=== PATIENT | male | born 1975 | race Caucasian/White ===

== ENCOUNTER 2017-03-26 19:30 | Emergency (ER) | payer SELFPAY ==
[2017-03-26 19:42] VITALS: PULSE 92; RESP 18; TEMP 99.3
[2017-03-26] MEDS ORDERED: Alum-Mag Hydrox-Simethicone Susp (30 mL) PO STA (20:12)
--- NOTE | 2017-03-26 20:14 | C.PDOC ---
History Of Present Illness 42 year old male presents to the ED for evaluation of vomit and diarrhea that started yesterday. Patient reports he ate pizza, 1 carrot and garlic bread. Patient reports today he felt nauseous which prevented him from eating today. Patient denies fever, chills, dysuria, hematuria, back pain, rash, recent travel , sick contacts. Time Seen by Provider: 03/26/17 19:58 Chief Complaint (Nursing): GI Problem History Per: Patient History/Exam Limitations: no limitations Onset/Duration Of Symptoms: Days Current Symptoms Are (Timing): Still Present Context: Food Location Of Pain/Discomfort: Diffuse Radiation Of Pain To:: None Quality Of Discomfort: "Pain" Associated Symptoms: Nausea, Vomiting, Diarrhea Alleviating Factors: None Recent travel outside of the [place]: No Additional History Per: Patient Past Medical History Reviewed: Historical Data, Nursing Documentation, Vital Signs Vital Signs: Last Vital Signs Temp 99.3 F 03/26/17 19:39 Pulse 92 H 03/26/17 19:39 Resp 18 03/26/17 19:39 BP 143/83 03/26/17 20:25 Pulse Ox 98 03/26/17 20:25 - Medical History PMH: No Chronic Diseases Denies: HIV, HTN, Chronic Kidney Disease, Seizures, Sexually Transmitted Disease Surgical History: No Surg Hx Family History: States: Unknown Family Hx - Social History Hx Tobacco Use: No Hx Alcohol Use: Yes (''WHISKEY'' daily) Hx Substance Use: No - Immunization History Hx Tetanus Toxoid Vaccination: No Hx Influenza Vaccination: No Hx Pneumococcal Vaccination: No Review Of Systems Constitutional: Negative for: Fever, Chills Cardiovascular: Negative for: Chest Pain, Palpitations Respiratory: Negative for: Cough Gastrointestinal: Positive for: Nausea, Vomiting, Diarrhea Genitourinary: Negative for: Dysuria, Hematuria Musculoskeletal: Negative for: Back Pain Skin: Negative for: Rash Neurological: Negative for: Weakness, Numbness Physical Exam - Physical Exam Appears: Non-toxic, No Acute Distress Skin: Normal Color, Warm, Dry Head: Atraumatic, Normacephalic Nose: No Discharge, No Deformity Oral Mucosa: Dry Neck: Normal ROM, Supple Chest: Symmetrical Cardiovascular: Rhythm Regular, No Murmur Respiratory: Normal Breath Sounds, No Rales, No Rhonchi, No Wheezing Gastrointestinal/Abdominal: Soft, No Tenderness, No Guarding, No Rebound Extremity: Normal ROM, No Pedal Edema, No Calf Tenderness, No Deformity, No Swelling Neurological/Psych: Oriented x3 ED Course And Treatment O2 Sat by Pulse Oximetry: 97 (On RA) Pulse Ox Interpretation: Normal Medical Decision Making Medical Decision Making: Plan: * Maalox 30 ml PO * Pepcid 20 mg PO * Zofran 4 mg PO n/v/d x 2 days, benign belly, vegitarian OK with PO regimen and defer w/u with informed consent. Disposition Doctor Will See Patient In The: Office Counseled Patient/Family Regarding: Studies Performed, Diagnosis - Disposition Referrals: Julio Babb MD [Staff Provider] - Disposition: HOME/ ROUTINE Disposition Time: 20:14 Condition: GOOD Additional Instructions: drink plenty of fluids, tea, gatorade BRAT diet: Bananas, white rice, apples, toast/bread for 2-3 days pepcid 20 mg @ night to lower stomach acid and irritation Maalox 30 cc (one tablespoon) to ease abdominal discomfort and slow diarrhea Zofran 4 mg ODT one tab ever 6 hours as needed for nausea/vomiting (dissolves under the tongue) Follow-up with Dr. Babb in 2 days as needed. Prescriptions: Aluminum Hydroxide/Magnesium [Maalox Plus 30 ml] 30 ml PO 5XD PRN #240 ml PRN Reason: Diarrhea Famotidine [Pepcid] 20 mg PO HS #5 tab Ondansetron ODT [Zofran ODT] 4 mg PO Q6H PRN #6 odt PRN Reason: Nausea/Vomiting Instructions: Gastroenteritis (ED) Forms: [employer] (Yoruba) - Clinical Impression Clinical Impression: Gastroenteritis - Scribe Statement The provider has reviewed the documentation as recorded by the Scribe Alexis Lama All medical record entries made by the Scribe were at my direction and personally dictated by me. I have reviewed the chart and agree that the record accurately reflects my personal performance of the history, physical exam, medical decision making, and the department course for this patient. I have also personally directed, reviewed, and agree with the discharge instructions and disposition.
[2017-03-26] MEDS ORDERED: Aluminum Hydroxide/Magnesium Hydroxide Susp (30 mL) ONE (20:18)
[2017-03-26 20:26] VITALS: BP 143/83
[2017-03-26 21:00] VITALS: O2SAT 97
== END 2017-03-26 20:25 | disposition home or self-care (01) ==
LOC: C.ER 19:30
DX: K52.9 Noninfective gastroenteritis and colitis, unspecified (principal)

== ENCOUNTER 2018-02-11 20:10 | Emergency (ER) | payer SELFPAY ==
--- NOTE | 2018-02-11 20:43 | C.PDOC ---
History Of Present Illness 42 year old male w/ hx of gastritis presents to the emergency department with complaints of right hip pain radiating below his R knee as well as five episodes of vomiting, and umbilical pain since earlier today. Patient states that he has not taken any medications for the pain. Pain is a sharp stabbing, to his R leg, worse when he moves it. No swelling or change in sensation below the knee or in the R leg. No fall or trauma. Pt notes that he woke up with the pain previously. No enuresis, encoparesis or loss of sensation in his legs. No back pain. He denies any fevers, chills or night sweats. No N/V. No constipation or diarrhea. No urinary d/c or complaints. No dark or bloody stool. No headache. No other complaints. Time Seen by Provider: 02/11/18 20:43 Chief Complaint (Nursing): Abdominal Pain History Per: Patient History/Exam Limitations: no limitations Onset/Duration Of Symptoms: Hrs Current Symptoms Are (Timing): Still Present Location Of Pain/Discomfort: Other (umbilical) Quality Of Discomfort: Sharp, "Pain" Past Medical History Reviewed: Historical Data, Nursing Documentation, Vital Signs Vital Signs: Last Vital Signs Temp 99 F 02/11/18 20:36 Pulse 101 H 02/11/18 20:36 Resp 20 02/11/18 20:36 BP 127/85 02/11/18 20:36 Pulse Ox 98 02/11/18 20:36 - Medical History PMH: Gastritis Denies: HIV, HTN, Chronic Kidney Disease, Seizures, Sexually Transmitted Disease Surgical History: No Surg Hx Family History: States: No Known Family Hx - Social History Hx Tobacco Use: No Hx Alcohol Use: Yes (''WHISKEY'' daily) Hx Substance Use: No - Immunization History Hx Tetanus Toxoid Vaccination: No Hx Influenza Vaccination: No Hx Pneumococcal Vaccination: No Review Of Systems Except As Marked, All Systems Reviewed And Found Negative. Constitutional: Negative for: Fever, Chills Eyes: Negative for: Pain ENT: Negative for: Ear Pain, Nose Pain, Mouth Pain, Throat Pain Cardiovascular: Negative for: Chest Pain, Palpitations, Edema Respiratory: Negative for: Cough, Shortness of Breath, Hemoptysis, SOB with Excertion, Pleuritic Pain, Sputum Gastrointestinal: Positive for: Abdominal Pain. Negative for: Nausea, Vomiting, Constipation, Melena, Hematochezia, Hematemesis Genitourinary: Negative for: Dysuria, Frequency Musculoskeletal: Positive for: Leg Pain (right hip). Negative for: Neck Pain, Arm Pain Skin: Negative for: Rash, Lesions Neurological: Negative for: Weakness, Numbness Physical Exam - Physical Exam Appears: Non-toxic, In Acute Distress Skin: Warm, Dry Head: Atraumatic, Normacephalic Eye(s): bilateral: Normal Inspection, PERRL, EOMI Neck: Normal, Supple Chest: Symmetrical, No Tenderness Cardiovascular: Rhythm Regular, No Murmur Respiratory: No Rales, No Rhonchi, No Wheezing Gastrointestinal/Abdominal: Soft, Tenderness (umbilical tenderness), No Guarding, No Rebound Back: Normal Inspection, No CVA Tenderness Extremity: Tenderness (right hip tenderness, +SLR. N/V intact distally. Full ROM. No overlying erythema or crepitus. ) Extremity: Bilateral: Atraumatic, No Pedal Edema, Normal Color And Temperature, Normal ROM Pulses: Left Dorsalis Pedis: Normal, Right Dorsalis Pedis: Normal Neurological/Psych: Oriented x3, Normal Speech, Normal Cognition Gait: Steady Extremity: Right: No Drift, Left: No Drift, Upper: No Drift, Lower: No Drift ED Course And Treatment - Laboratory Results Result Diagrams: 02/11/18 21:33 02/11/18 21:33 O2 Sat by Pulse Oximetry: 98 (RA) Pulse Ox Interpretation: Normal Medical Decision Making Medical Decision Makin yr old male w/ hsx of gastritis p/w abdominal pain and R hip pain. R hip pain radiates past R knee +SLR. No indication of cauda equina or septic joint. No fall or trauma. Umbilical abd pain, mild without RLQ pain or rebounding. No complaints. Likely R sciatica. Pending imaging and labs Plan: CT Abdomen and Pelvis CMP Creatine Phosphokinase CBC Toradol 15mg PO XR Right Hip Urinalysis [address] abd pain unremarkable. XR unremarkable Pt notes some continued sciatica pain, will rx with flexiril tolerating clears pt otherwise in NAD clear for d/c pt agreeable Disposition - Disposition Referrals: [facility] [Outside] [facility] [Outside] Disposition: HOME/ ROUTINE Disposition Time: 23:41 Condition: GOOD Additional Instructions: CHAKA FERRIS, thank you for letting us take care of you today. Your provider was Tj Fleming and you were treated for RIGHT LEG PAIN AND VOMITING. The emergency medical care you received today was directed at your acute symptoms. If you were prescribed any medication, please fill it and take as directed. It may take s everal days for your symptoms to resolve. Return to the Emergency Department if your symptoms worsen, do not improve, or if you have any other problems. Please contact your doctor or call one of the physicians/clinics you have been referred to that are listed on the Patient Visit Information form that is included in your discharge packet. Bring any paperwork you were given at discharge with you along with any medications you are taking to your follow up visit. Our treatment cannot replace ongoing medical care by a primary care provider outside of the emergency department. Thank you for allowing the [facility] team to be part of your care today. If you had an X-Ray or CT scan: A Radiologist will review the ED reading if any change in treatment is needed we will contact you. If you had a blood, urine, or wound culture: It will take several days for the results, if any change in treatment is needed we will contact you. If you had an STI test: It will take 48 hours for the results. Please call after 1 week if you have not heard back. Prescriptions: RX: Cyclobenzaprine [Flexeril] 5 mg PO BID 4 Days #8 tab Instructions: Sciatica, Sciatica Exercises Forms: [employer] (Hungarian) - Clinical Impression Clinical Impression: Sciatica - Scribe Statement The provider has reviewed the documentation as recorded by the Scribe (Gavin Franco) Provider Attestation: All medical record entries made by the Scribe were at my direction and personally dictated by me. I have reviewed the chart and agree that the record accurately reflects my personal performance of the history, physical exam, medical decision making, and the department course for this patient. I have also personally directed, reviewed, and agree with the discharge instructions and disposition.
[2018-02-11 21:36] LABS: BASO % 0.5 % (0.0-2.0); EOS % 0.3 % (0.0-4.0); HEMOGLOBIN 14.8 g/dL (12.0-18.0); LYMPH # 2.4 K/uL (1.0-4.3); LYMPH % 28.4 % (20.0-40.0); MEAN CELL VOLUME 94.5 fL (80.0-94.0); MEAN CORPUSCULAR HEMOGLOBIN 32.7 pg (27.0-31.0); MEAN CORPUSCULAR HGB CONC 34.6 g/dL (33.0-37.0); MEAN PLATELET VOLUME 7.9 fL (7.2-11.7); MONO # 0.4 K/uL (0.0-0.8); MONO % 4.5 % (0.0-10.0); NEUT # 5.5 K/uL (1.8-7.0); NEUT % 66.3 % (50.0-75.0); NRBC % 0.1 % (0.0-2.0); RBC 4.52 Mil/uL (4.40-5.90); RED CELL DISTRIBUTION WIDTH 13.1 % (11.5-14.5)
[2018-02-11 21:37] LABS: WHITE BLOOD COUNT 8.3 K/uL (4.8-10.8)
[2018-02-11] MEDS ORDERED: Iodixanol 320 MG/ML 100 ML BOTTLE IV ONE (21:37)
[2018-02-11 21:44] LABS: SQUAMOUS EPITHIAL < 1 /hpf (0-5); URINE BILIRUBIN NEGATIVE (NEGATIVE); URINE BLOOD NEGATIVE (NEGATIVE); URINE CLARITY Clear (Clear); URINE COLOR Yellow (YELLOW); URINE GLUCOSE (UA) NORMAL (Normal); URINE LEUKOCYTE ESTERASE NEG Leu/uL (Negative); URINE PROTEIN NEGATIVE (NEGATIVE); URINE UROBILINOGEN NORMAL mg/dL (0.2-1.0)
[2018-02-11 21:52] LABS: ALBUMIN 4.9 g/dL (3.5-5.0); BLOOD UREA NITROGEN 16 mg/dL (9-20); CALCIUM 9.3 mg/dl (8.6-10.4); GFR NON-AFRICAN AMERICAN > 60
[2018-02-11 21:53] LABS: ALB/GLOB RATIO 1.6 (1.0-2.1); ALT/SGPT 49 U/L (21-72); AST/SGOT 69 U/L (17-59)
[2018-02-11 23:51] VITALS: BP 121/81; PULSE 81; RESP 22; TEMP 98.2
--- NOTE | 2018-02-12 10:09 | RAD ---
PROCEDURE: Right Hip Radiographs. HISTORY: r hip pain COMPARISON: None. FINDINGS: BONES: Normal. No fracture. JOINTS: Normal. SOFT TISSUES: Normal. OTHER FINDINGS: None. IMPRESSION: Normal radiographs of right hip.
--- NOTE | 2018-02-12 10:41 | CT ---
Date of service: 02/11/2018 PROCEDURE: CT Abdomen and Pelvis with contrast HISTORY: RLQ pain COMPARISON: No prior study available for comparison. TECHNIQUE: Contiguous helical/transaxial sections of the abdomen pelvis performed following injection of approximately 100 cc Visipaque 320 contrast material. Additional 2D sagittal and coronal reformats generated Radiation dose: Total exam DLP = 264.06 mGy-cm. This CT exam was performed using one or more of the following dose reduction techniques: Automated exposure control, adjustment of the mA and/or kV according to patient size, and/or use of iterative reconstruction technique. FINDINGS: LOWER THORAX: Heart size within range of normal. No significant pericardial effusion there is a small hiatal hernia. Minimal passive/dependent type atelectasis both posterior lower lung villarreal. LIVER: Liver exhibits normal size measuring nearly 18 cm in CC dimension. No obvious hepatic mass or collection however there is mild diffuse fatty hepatic infiltration. Portal and splenic veins are opacified. GALLBLADDER AND BILE DUCTS: Gallbladder is physiologically distended. No evidence of intraluminal gallbladder calculi. PANCREAS: Pancreas appears grossly unremarkable without masses collections or calcifications. No significant pancreatic ductal dilatation. SPLEEN: Spleen exhibits normal size and attenuation pattern without mass collection or calcification. ADRENALS: Slightly nodular left adrenal gland. KIDNEYS AND URETERS: Unremarkable. No hydronephrosis. No solid mass. VASCULATURE: Unremarkable. No aortic aneurysm. No aortic atherosclerotic calcification or mural plaque present. BOWEL: Evaluation of the bowel is somewhat less limited due to the lack of oral contrast material. Stomach is incompletely distended. Visualized loops of small bowel exhibit normal contour and caliber. No evidence of acute mechanical small bowel obstruction. Stool and air seen throughout the large bowel. No definitive mural wall thickening. APPENDIX: Normal-appearing appendix best seen on axial series 3 image number sign [id number]. No periappendiceal inflammatory changes. PERITONEUM: Unremarkable. No free fluid. No free air. Small fat containing umbilical hernia. LYMPH NODES: Unremarkable. No enlarged lymph nodes. BLADDER: Urinary bladder is incompletely distended which in part accounts for thick-walled appearance. Muscular hypertrophy may contribute. Cystitis would be less likely in a young male patient though not completely excluded. Correlation with urinalysis recommended. REPRODUCTIVE: Prostate gland measures approximately 3.4 cm in transverse dimension... Questionable of right and possibly small left-sided varicoceles. Scrotal ultrasound could be performed for further evaluation. BONES: Minor multilevel degenerative spondylosis of the lower thoracic and lumbar spine. No acute fracture seen. OTHER FINDINGS: None.. IMPRESSION: No evidence of acute appendicitis. Mild fatty hepatic infiltration. The slightly nodular appearing left adrenal gland. Possible small right and tiny left-sided scrotal varicoceles. Follow-up ultrasound could be performed for further evaluation. Note that this report was placed in PA review folder for follow up
[2018-02-13 00:44] VITALS: O2SAT 98
== END 2018-02-12 00:21 | disposition home or self-care (01) ==
LOC: C.ER 20:10
DX: M54.30 Sciatica, unspecified side (principal)
CPT/HCPCS: 73502; 74177; 80053; 81001; 82550; 85025; 96374; 99285; J1885; Q9967